=== PATIENT | female | born 1970 | race African-American/Black ===

== ENCOUNTER 2017-12-10 02:20 | Emergency (ER) | payer OTHER ==
[2017-12-10 02:50] LABS: Hemoglobin 13.2 g/dL (12.0-16.0); Mean Corpuscular HGB CONC 32.9 g/dL (32.0-36.0); Mean Corpuscular Hemoglobin 27.9 pg (27.0-31.0); Mean Corpuscular Volume 84.7 fl (81.0-99.0); RBC Distribution Width 12.7 % (11.5-14.5); Red Blood Cell (RBC) Count 4.72 mill/uL (4.20-5.40); White Blood Cell (WBC) Count 15.5 thou/uL (4.8-10.8)
[2017-12-10 03:11] LABS: ALT (SGPT) 11 U/L (8-55); AST (SGOT) 19 U/L (5-34); Albumin 3.9 g/dL (3.5-5.0); Alkaline Phosphatase 118 U/L (40-150); Anion Gap 12 mmol/L (10-20); BUN (Urea Nitrogen) 9 mg/dL (7.0-18.7); Bilirubin, Total 0.4 mg/dL (0.2-1.2); CK (CPK) 84 U/L (29-168); Calc. Creatinine Clearance 0 mL/min (70-130); Calcium 9.3 mg/dL (7.8-10.44); Carbon Dioxide 24 mmol/L (22-29); Chloride 103 mmol/L (98-107); Estimated GFR-MDRD 79; Globulin 3.4 g/dL (2.4-3.5); Glucose 207 mg/dL (70-105); Potassium 3.1 mmol/L (3.5-5.1); Protein, Total 7.3 g/dL (6.0-8.3); Sodium 136 mmol/L (136-145)
[2017-12-10 03:16] LABS: Troponin I 0.154 ng/mL (< 0.028)
[2017-12-10 03:22] LABS: #Basophils 0.2 thou/uL (0.0-0.2); #Monocytes 0.4 thou/uL (0.11-0.59); #Neutrophils 13.9 thou/uL (1.40-6.50); %Eosinophils 0.3 % (0.0-10.0); %Lymphocytes 6.4 % (21.0-51.0); %Monocytes 2.8 % (0.0-10.0); %Neutrophils 89.4 % (42.0-75.0); Mean Platelet Volume 8.5 fL (7.4-10.4); PLT Morphology Comment Appears Decreased; Platelet Count 113 thou/uL (130-400)
[2017-12-10 04:06] LABS: Amphetamine Not Detected (NotDetected); Barbiturates Screen Not Detected (NotDetected); Benzodiazepine Screen Detected (NotDetected); Cocaine Metabolite Screen Not Detected (NotDetected); Medtox Reader # READER 4; Methadone Not Detected (NotDetected); Methamphetamine Not Detected (NotDetected); Opiate Screen Not Detected (NotDetected); Oxycodone Screen Not Detected (NotDetected); Phencyclidine (PCP) Not Detected (NotDetected); THC/Cannabinoid Screen Not Detected (NotDetected); Tricyclic Screen Not Detected (NotDetected)
[2017-12-10 04:07] LABS: Medtox Control Line Valid? VALID (VALID)
[2017-12-10] MEDS ORDERED: Azithromycin 500 MG VIAL ONE (05:11)
[2017-12-10 05:23] LABS: Troponin I 0.406 ng/mL (< 0.028)
[2017-12-10] MEDS ORDERED: Aspirin 325 MG TAB ONE (05:34)
--- NOTE | 2017-12-10 09:01 | RAD ---
CHEST 1 VIEW: Date: 12/10/17 HISTORY: Altered mental status. FINDINGS: Cardiac silhouette is magnified by projection. Pulmonary vasculature is upper limits of normal and pa rtially obscured by widespread, somewhat diffuse air space opacity. Left lower lobe is relatively spa red. Mediastinum is midline. No evidence of pneumothorax. monitor technician leads overlie the chest. IMPRESSION: Diffuse, widespread alveolar opacification. Clinical correlation regarding other signs and symptoms o f diffuse pneumonitis versus flash edema is required. POS: OFF
--- NOTE | 2017-12-10 09:18 | CT ---
PRELIMINARY REPORT/[facility]/EMERGENTY AFTER-HOURS PROCEDURE EXAM:CT Head Without Intravenous Contrast CLINICAL HISTORY: 47 years old, female; Signs and symptoms; Altered mental status/memory loss; Confusion or disorientat ion; Patient HX: AMS TECHNIQUE: Axial computed tomography images of the head/brain without intravenous contrast. COMPARISON: No relevant prior studies available. FINDINGS: No definite acute skull fracture. Small retention cyst or polyp in the left maxillary sinus. Included paranasal sinuses otherwise appear essentially clear. No acute intracranial hemorrhage or mass effect. Ventricle size is normal for age. 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 No definite acute infarct by CT. MRI could be more sensitive/specific for detecting an acute infarct, and also for distinguishing between old and subacute infarcts, as clinically directed. IMPRESSION: No acute intracranial bleed or mass effect. 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 No definite acute infarct by CT, see above. Some limitations due to artifact from patient motion. Thank you for allowing us to participate in the care of your patient. Dictated and Authenticated by: Danny Gilbert MD 12/10/2017 3:10 AM Central Time ([place] & [place]) FINAL REPORT EMERGENCY AFTER HOURS BRAIN CT WITHOUT IV CONTRAST: Date: 12/10/17 Time: 0246 hours FINDINGS: Prominent motion artifact lowers the sensitivity of this study. Small old right cerebellar infarct. N o mass, bleed, or other acute process. Report in agreement with preliminary report given on-call by Gil. POS: DARNELL
--- NOTE | 2018-02-12 13:05 | EKG ---
Test Reason : AMS Blood Pressure : / mmHG Vent. Rate : 110 BPM Atrial Rate : 110 BPM P-R Int : 156 ms QRS Dur : 096 ms QT Int : 358 ms P-R-T Axes : 054 009 094 degrees QTc Int : 484 ms Sinus tachycardia Possible Left atrial enlargement Inferior infarct , age undetermined Possible Anterior infarct , age undetermined Abnormal ECG Confirmed by HEENA DUBOIS ([id number]), digital editor GISELL DURAND ([id number]) on 02/12/2018 1:05:03 PM Referred By: LOBITO NAVARRO Confirmed By:HEENA DUBOIS
== END 2017-12-10 07:27 | disposition short-term general hospital (02) ==
LOC: ERS 02:20
DX: I21.4 Non-ST elevation (NSTEMI) myocardial infarction (principal); J18.9 Pneumonia, unspecified organism; I10 Essential (primary) hypertension
CPT/HCPCS: 36415; 51701; 70450; 71045; 80053; 80306; 82553; 83605; 83880; 84484; 85025; 87040; 93005; 96361; 96365; 96375; A4353; J0456; J0696